=== PATIENT | female | born 1955 | race Caucasian/White ===

== ENCOUNTER 2023-10-12 16:36 | Emergency (ER) | payer MEDICARE, OTHER, SELFPAY ==
[2023-10-12 17:02] VITALS: BP 137/91
[2023-10-12 17:31] LABS: % Basophils 0.6 % (0-2); % Immature Granulocytes 0.2 % (0-0.5); % Lymphocytes 17.6 % (20.5-51.1); % Monocytes 6.9 % (1.7-9.3); % Neutrophils 70.7 % (42.2-75.2); Absolute Basophils 0.1 10^3/uL (0-0.2); Absolute Eosinophils 0.4 10^3/uL (0-0.7); Absolute Lymphocytes 1.7 10^3/uL (1.2-3.4); Absolute Monocytes 0.7 10^3/uL (0.1-0.6); Absolute Neutrophils 6.7 10^3/uL (1.4-6.5); Hematocrit 40.5 % (37.0-47.0); Hemoglobin 13.9 g/dL (12.0-16.0); Mean Corp Hgb Conc. 34.3 g/dL (33.0-37.0); Mean Corpuscular Hgb 30.6 pg (27.0-31.0); Mean Corpuscular Volume 89.2 fL (81.0-99.0); Mean Platelet Volume 11.8 fL (7.4-10.4); Nucleated Red Blood Cells % 0 %; Platelet Count 245 10^3/uL (130-400); Red Blood Cell Count 4.54 10^6/uL (4.20-5.40); Red Cell Dist. Width 12.1 % (11.5-14.5); White Blood Cell Count 9.5 10^3/uL (4.8-10.8)
[2023-10-12 17:39] LABS: Urine Albumin Trace (Neg - Trace); Urine Bilirubin Negative (Negative); Urine Character Slightly Cloudy (Clear); Urine Color Yellow; Urine Glucose 3+ (Negative); Urine Ketone 1+ (Negative); Urine Leukocyte 2+ (Negative); Urine Nitrite Negative (Negative); Urine Occult Blood 2+ (Negative); Urine Specific Gravity 1.025 (<1.030); Urine Urobilinogen Negative (Neg - 1+)
[2023-10-12 17:41] LABS: ALT (SGPT) 19 U/L (0-35); AST (SGOT) 22 U/L (14-36); Albumin 3.9 g/dl (3.5-5.0); Alkaline Phosphatase 116 U/L (38-126); Blood Urea Nitrogen 21 mg/dl (7-17); Calcium 9.6 mg/dl (8.4-10.2); Carbon Dioxide 28 mmol/L (22-30); Chloride 95 mmol/L (98-107); Glucose 278 mg/dl (70-99); Potassium 3.4 mmol/L (3.5-5.1); Sodium 135 mmol/L (135-145); Total Bilirubin 0.6 mg/dl (0.2-1.3); Total Protein 6.9 g/dl (6.3-8.2); eGFR > 60.00
[2023-10-12 17:55] LABS: Urine Squamous Cell >30 /LPF (Few)
[2023-10-12 17:57] LABS: Urine Bacteria Few (Negative); Urine White Cell 50-60 /HPF (0-5); Urine Yeast Few (Negative)
[2023-10-12 21:22] VITALS: BP 138/80
[2023-10-12 22:00] VITALS: BP 152/81
[2023-10-12 23:00] VITALS: BP 164/82
[2023-10-12] MEDS: NSS 1000 IV (23:17)
[2023-10-12] MEDS: OMNICEF 300 MG PO (23:17)
--- NOTE | 2023-10-12 23:24 | ED.GENMED ---
History of Present Illness
General
Chief Complaint: Fall
Source: patient
Exam Limitations: none
Time Seen by Provider: 10/12/23 22:40
Nursing documentation reviewed up to this point in time: agreed with
Travel History
Have you had any contact with someone who has COVID-19?: No
Do you have any symptoms of coronavirus? Fever > 100 degrees, chills, cough, shortness of breath, sore throat, loss of taste or smell, muscle aches, or headache?: No
History of Present Illness
History of Present Illness:
68-year-old female with past medical history of diabetes, GERD presenting to the emergency department with concerns of elevated blood sugar level. Patient also claims she has had some difficulty with urination recently as well. Denies any chest
pain shortness of breath fevers.
Past History
Past History
ED Past Medical History: HTN, NIDDM and Other (Migraine headaches, restless leg syndrome)
ED Past Surgical History: Cholecystectomy, , Orthopedic (knee) and Tonsilectomy
Social History
Tobacco: Non-smoker
Personal:
Living: with family
Employment: Employed
Family History
Family History: Hypertension
Review of Systems
Review of Systems
Allergies reviewed?: Yes
All Other Systems: ROS reviewed and negative except as documented in HPI and ROS
Phy Exam
Physical Exam
Physical Exam:
GENERAL: Alert , in no apparent distress
EYE: pupils equal and reactive
NECK: Supple, no significant adenopathy.
ENT: o/p clr, mmm.
CARDIAC: Regular rate and rhythm .
LUNGS: Clear breath sounds bilaterally, no acute respiratory distress, no wheezes/rales/rhonchi
ABDOMEN: Soft, without focal tenderness, no r/g, no cvat
NEUROLOGICAL: Alert and oriented, no focal neuro deficits
SKIN: Warm and dry, skin intact.
MUSCULOSKELETAL: No edema, well perfused.
PSYCH: Normal and appropriate interaction.
Course
Orders/Labs/Results
Orders:
Orders
10/12/23 17:18
Complete Blood Count/With Diff Urgent
Comprehensive Metabolic Panel Urgent
10/12/23 17:21
Urinalysis Reflex To Culture Urgent
Date Specimen was Collected: 10/12/23
Time Specimen was Collected: 17:12
Urine Microscopic Reflex Cult Urgent
Urine Culture Urgent
SALINA Source: U
Specimen Description:
Date Specimen was Collected: 10/12/23
Time Specimen was Collected: 17:12
10/12/23 23:08
0.9% Sodium Chloride 1000 ml [Nss] 1,000 ml IV BOLUS
10/12/23 23:09
Cefdinir [Omnicef] 300 mg PO NOW STA
Abnormal Lab Results
10/12/23 10/12/23
17:18 17:21
MPV 11.8 H fL
(7.4-10.4)
Absolute Neuts (auto) 6.7 H 10^3/uL
(1.4-6.5)
Absolute Monos (auto) 0.7 H 10^3/uL
(0.1-0.6)
Lymphocytes % 17.6 L %
(20.5-51.1)
Potassium 3.4 L mmol/L
(3.5-5.1)
Chloride 95 L mmol/L
(98-107)
BUN 21 H mg/dl
(7-17)
Glucose 278 H mg/dl
(70-99)
Urine Ketones 1+ A
(Negative)
Ur Occult Blood Reflex 2+ A
(Negative)
Leukocyte Esterase Rfl 2+ A
(Negative)
Urine RBC 7-10 A /HPF
(0-2)
Urine WBC (Reflex) 50-60 A /HPF
(0-5)
Urine Bacteria (Reflex) Few A
(Negative)
Urine Yeast Few A
(Negative)
Urine Glucose 3+ A
(Negative)
10/12/23 17:18
10/12/23 17:18
Vital Signs
Initial and Last Documented VS:
Initial Vital Signs
Temp Pulse Resp BP Pulse Ox
98.8 F 75 20 137/91 97
10/12/23 17:02 10/12/23 17:02 10/12/23 17:02 10/12/23 17:02 10/12/23 17:02
Last Documented Vital Signs
Temp Pulse Resp BP Pulse Ox
98.8 F 71 13 140/85 97
10/12/23 17:02 10/12/23 23:39 10/12/23 23:39 10/12/23 23:39 10/12/23 23:39
MDM/Problems Addressed
MDM/Problems Addressed:
68-year-old female presenting to the emergency department today with concerns of elevated sugar level. Here glucose of 278 normal bicarb not consistent with DKA other labs unremarkable urinalysis does show potential signs consistent with infection.
Patient does have urinary frequency urgency. Will treat for UTI. Patient was given dose of cefdinir does have a listed cephalosporin allergy believe believe that there was cephalexin. No reaction here after being observed. Stable for outpatient
management return precautions given. Was written for her metformin and glyburide and will follow-up closely with primary care doctor.
*Critical Care Note
Total Time (30-74mins, 75-104mins- exclusive of procedures): Not Applicable
ED Attending Note
-
Portions of this chart may have been created with voice recognition software.� Occasional wrong word or��sound alike� substitutions may have occurred due to the inherent limitations of voice recognition software.
Discharge Plan
Departure
Patient Disposition: Home (Routine Discharge)
Date of Disposition: 10/12/23
Time of Disposition: 23:24
Patient with high blood pressure during this ER visit?: No
Condition: Good
Covid-19: Not Applicable
Discharge Problem:
Diabetes, Hyperglycemia, Acute UTI
Instructions: High Blood Sugar, Adult (DC), Acute Cystitis (DC)
Prescriptions:
New
metformin 500 mg tablet
500 mg PO BID 14 Days Qty: 28 0RF
glyburide 1.25 mg tablet
1.25 mg PO DAILY 14 Days Qty: 14 0RF
ondansetron 4 mg tablet,disintegrating
4 mg PO Q8H PRN (Reason: nausea and vomiting) Qty: 10 0RF
cefdinir 300 mg capsule
300 mg PO BID 5 Days Qty: 10 0RF
No Action
metformin 500 MG tablet
1,000 mg PO BID
pramipexole 0.25 MG tablet
0.25 mg PO QPM
hydrochlorothiazide 25 MG tablet
25 mg PO QPM
aspirin 81 MG tablet,delayed release (DR/EC)
81 mg PO QPM
Calcium
1 tab PO QPM
clindamycin HCl 300 MG capsule
300 mg PO Q8H Qty: 0 0RF
Referrals:
[facility] [Provider Group]
Lesley Sykes MD [Family Provider] -
Activity Restrictions/Additional Instructions:
You came to the emergency department today with concerns of elevated blood sugar level. Please resume your prescribed medications to help with this. Please drink water and avoid excessive carbohydrate intake. Additionally found to have a
potential UTI. 3 times daily for the next 5 days for treatment. Return to the emergency department any worsening, new or concerning symptoms. Please see your primary care doctor within the next week for reassessment.
Interventions
Interventions:
*Risk Screen - Suicide Last Done: 10/12/23 21:26
*General Assessment Last Done: 10/12/23 21:26
*Neglect/Abuse Screening Last Done: 10/12/23 21:26
ED- Fall Risk Assessment Last Done: 10/12/23 21:26
*ED COVID-19 Vaccine History Last Done: 10/12/23 23:46
*Nursing Disposition Last Done: 10/12/23 23:46
ED-Musculoskeletal Assessment Last Done: 10/12/23 21:26
ED- Neurological Assessment Last Done: 10/12/23 21:26
ED-Skin Assessment Last Done: 10/12/23 21:26
Discharge Date and Time
Discharge Date/Time: 10/12/23 23:53
[2023-10-12 23:39] VITALS: BP 140/85
== END 2023-10-12 23:53 | disposition home or self-care (01) ==
LOC: EMR 16:36
PROVIDERS: Student in an Organized Health Care Education/Training Program; EMERGENCY PHYSICIAN Emergency Medicine; FAMILY PHYSICIAN Internal Medicine
DX: E11.65 Type 2 diabetes mellitus with hyperglycemia (principal); N39.0 Urinary tract infection, site not specified; K21.9 Gastro-esophageal reflux disease without esophagitis; I10 Essential (primary) hypertension; G25.81 Restless legs syndrome; G43.909 Migraine, unspecified, not intractable, without status migrainosus; Z79.82 Long term (current) use of aspirin; Z79.84 Long term (current) use of oral hypoglycemic drugs; Z85.828 Personal history of other malignant neoplasm of skin; Z90.49 Acquired absence of other specified parts of digestive tract; Z88.3 Allergy status to other anti-infective agents; Z88.0 Allergy status to penicillin; Z88.8 Allergy status to other drugs, medicaments and biological substances
CPT/HCPCS: 99284; 96360; 80053; 81003; 81015; 85025; 87086